=== PATIENT | male | born 1980 | race Caucasian/White ===

== ENCOUNTER 2016-05-27 07:51 | Emergency (ER) | payer OTHER ==
[2016-05-27 07:57] VITALS: PULSE 70
[2016-05-27] MEDS ORDERED: ONDANSETRON 4 MG/2 ML VIAL IVP STA (08:13)
[2016-05-27] MEDS ORDERED: HYDROmorphone 1 MG/ML 1 ML SYRINGE IVP STA (08:13)
[2016-05-27] MEDS ORDERED: DIPH,PERTUS(ACELL)TETVAC-LF 0.5 ML VIAL IM ONE (08:15)
--- NOTE | 2016-05-27 08:16 | ED ---
General Adult HPI - General Chief complaint: Fall Stated complaint: FALL, LEFT ARM INJURY Time Seen by Provider: 05/27/16 08:06 Source: patient, EMS, RN notes reviewed Mode of arrival: EMS Limitations: no limitations - History of Present Illness Initial comments: Patient 35-year-old male who presents emergency room today by EMS, the chief complaint of a fall that occurred just prior to arrival. Does admit that he was on the back of a semi-trailer when he fell off landing on the left elbow. Does admit to some scrapes to the left mauro but states pain is to the left elbow. EMS did give him fentanyl for pain. He states pain is returning. Does admit to pain to the posterior aspect of left elbow. Does have small abrasion is unsure of his tetanus status. Denies any head injury or loss consciousness. Denies any other complaints. Patient denies any recent fever, chills, shortness of breath, chest pain, back pain, abdominal pain, nausea or vomiting, numbness or tingling, dysuria or hematuria, constipation or diarrhea, headaches or visual changes, or any other complaints. - Related Data Previous Rx's Medication Instructions Recorded Cephalexin [Keflex] 500 mg PO Q12HR 7 Days 05/27/16 Hydrocodone/Acetaminophen [[place] 1 each PO Q6HR PRN #20 tab 05/27/16 5-325] Allergies Allergy/AdvReac Type Severity Reaction Status Date / Time No Known Allergies Allergy Verified 05/27/16 07:59 Review of Systems ROS Statement: Those systems with pertinent positive or pertinent negative responses have been documented in the HPI. ROS Other: All systems not noted in ROS Statement are negative. Past Medical History Past Medical History: No Reported History History of Any Multi-Drug Resistant Organisms: MRSA Date of last positivie culture/infection: 2006 MDRO Source:: stomach Past Surgical History: No Surgical Hx Reported Past Psychological History: No Psychological Hx Reported Smoking Status: Current every day smoker Past Alcohol Use History: Occasional Past Drug Use History: None Reported General Exam - General Exam Comments Initial Comments: General: The patient is awake and alert, in no distress, and does not appear acutely ill. Eye: Pupils are equal, round and reactive to light, extra-ocular movements are intact. No nystagmus. There is normal conjunctiva bilaterally. No signs of icterus. Ears, nose, mouth and throat: There are moist mucous membranes and no oral lesions. Neck: The neck is supple, there is no tenderness or JVD. Cardiovascular: There is a regular rate and rhythm. No murmur, rub or gallop is appreciated. Respiratory: Lungs are clear to auscultation, respirations are non-labored, breath sounds are equal. No wheezes, stridor, rales, or rhonchi. Gastrointestinal: Soft, non-distended, non-tender abdomen without masses or organomegaly noted. There is no rebound or guarding present. No CVA tenderness. Musculoskeletal: Patient does have moderate swelling bruising to the posterior aspect of the left elbow. Does have abrasion just superior to the olecranon. No active bleeding. No deep tissue involvement. Patient shows good range of motion of the left hand and wrist both able to flex and extend in these areas. No tenderness to the left shoulder or down to the left wrist or hand. Locally tender to the posterior aspect of the left elbow. No tenderness in the proximal humerus. Sensations are intact pulses equal bilaterally 2+. Neurological: A&O x 3. CN II-XII intact, There are no obvious motor or sensory deficits. Coordination appears grossly intact. Speech is normal. Skin: Skin is warm and dry and no rashes or lesions are noted. Psychiatric: Cooperative, appropriate mood & affect, normal judgment. Limitations: no limitations Course Vital Signs 05/27/16 05/27/16 07:52 09:20 Temperature 97.4 F L Pulse Rate 70 70 Respiratory 18 18 Rate Blood Pressure 136/78 131/69 O2 Sat by Pulse 98 97 Oximetry Medical Decision Making - Medical Decision Making Superficial abrasion cleaned here in the emergency room dressed with a nonstick dressing with bacitracin. Patient will be covered with a antibiotic Keflex. Patient's x-ray reviewed and does show evidence for a comminuted distal humerus fracture. Results were discussed with attending physician Dr. Vallejo who did discuss the case with on-call orthopedics Dr. Ham who recommends the patient could follow up within 10 days for surgery. Patient is from out of town and lives over in the [place] area works as a over the road electrical system specialist. States he would like to go home to have the surgery done. He has been splinted in a heavily padded posterior long arm OCL. Neurovascular rechecked and intact. Patient will be discharged home with pain medication advised to ice elevate the affected area. Also given a sling for comfort. Advised splint to remain in place until follow-up with orthopedics. Advised follow-up the family doctor or employee health for orthopedic referral in the [facility]. Patient advised to return to the emergency room if any symptoms increase or worsen or for any other concerns. Disposition Clinical Impression: Humerus distal fracture Disposition: HOME SELF-CARE Condition: Good Instructions: Elbow Fracture in Adults (ED) Additional Instructions: Please use medication as discussed. Please follow-up with orthopedics or family doctor in the next 2 days of symptoms have not improved. Please return to emergency room if the symptoms increase or worsen or for any other concerns. Prescriptions: Cephalexin [Keflex] 500 mg PO Q12HR 7 Days Hydrocodone/Acetaminophen [[place] 5-325] 1 each PO Q6HR PRN #20 tab PRN Reason: Pain Time of Disposition: 10:03
--- NOTE | 2016-05-27 08:41 | XR ---
EXAMINATION TYPE: XR elbow limited LT DATE OF EXAM: 05/27/2016 8:37 AM COMPARISON: NONE HISTORY: Pain, fall laceration TECHNIQUE: 3 view left elbow. FINDINGS: There is a comminuted fracture the distal humerus. There is displacement of fracture fragme nts the radius aligns normally with the distal humerus. IMPRESSION: 1. Comminuted fracture distal humerus with displacement of fracture fragments
[2016-05-27 10:22] VITALS: BP 128/78; RESP 16; TEMP 98
== END 2016-05-27 10:21 | disposition home or self-care (01) ==
LOC: EC 07:51
DX: S42.402A Unspecified fracture of lower end of left humerus, initial encounter for closed fracture (principal); S50.312A Abrasion of left elbow, initial encounter; F17.200 Nicotine dependence, unspecified, uncomplicated; Z23 Encounter for immunization; Z86.14 Personal history of Methicillin resistant Staphylococcus aureus infection; W17.89XA Other fall from one level to another, initial encounter; Y93.89 Activity, other specified; Y92.812 Truck as the place of occurrence of the external cause; Y99.0 Civilian activity done for income or pay
CPT/HCPCS: 99284; 96374; 96375; 29105; 73070; 90715; J2405; J1170; 90471